=== PATIENT | male | born 1945 | race African-American/Black ===

== ENCOUNTER 2017-06-02 00:11 | Emergency (ER) | payer MEDICAID, MEDICARE ==
[~2017-06-02] VITALS: Ht 175.3 cm; Wt 99.8 kg
[2017-06-02 00:23] VITALS: BP 156/85
[2017-06-02] MEDS ORDERED: NKM (00:23)
[2017-06-02 01:16] LABS: BASOPHILS % (AUTO) 0.7 % (0.0-2.0); EOSINOPHILS % (AUTO) 4.1 % (0.0-3.0); LYMPHOCYTES % (AUTO) 17.2 % (20.0-45.0); MEAN CORPUSCULAR HGB CONC 32.1 G/DL (32.0-36.0); MEAN CORPUSCULAR VOLUME 90 FL (80-99); MEAN PLATELET VOLUME 9.2 FL (6.5-10.1); MONOCYTES % (AUTO) 5.3 % (1.0-10.0); NEUTROPHILS % (AUTO) 72.7 % (45.0-75.0); PLATELET COUNT 205 K/UL (150-450); RED BLOOD COUNT 4.45 M/UL (4.70-6.10); RED CELL DISTRIBUTION WIDTH 14.2 % (11.6-14.8); WHITE BLOOD COUNT 7.9 K/UL (4.8-10.8)
[2017-06-02 01:34] LABS: APPEARANCE,URINE CLEAR; KETONES,URINE NEGATIVE (NEGATIVE); LEUKOCYTE ESTERASE ,URINE NEGATIVE (NEGATIVE); NITRITE,URINE NEGATIVE (NEGATIVE); PH,URINE 5 (4.5-8.0); PROTEIN,URINE NEGATIVE (NEGATIVE); UROBILINOGEN,URINE NORMAL MG/DL (0.0-1.0)
[2017-06-02 01:35] LABS: ALANINE AMINOTRANSFERASE 10 U/L (3-41); ALBUMIN/GLOBULIN RATIO 1.1 (1.0-2.7); ANION GAP 11 (5-15); ASPARTATE AMINO TRANSFERASE 19 U/L (5-40); CALCIUM 9.2 mg/dL (8.6-10.2); CARBON DIOXIDE 28 mEQ/L (20-30); CHLORIDE 102 mEQ/L (98-107); GLOMERULAR FILTRATION RATE > 60 mL/min (>60); HEMOLYSIS 56; POTASSIUM 3.5 mEQ/L (3.4-4.9); SODIUM 141 mEQ/L (135-145); TOTAL PROTEIN 7.2 g/dL (6.6-8.7)
[2017-06-02 01:38] LABS: TROPONIN I < 0.30 ng/mL (<=0.30)
[2017-06-02 02:10] VITALS: BP 150/86
--- NOTE | 2017-06-02 02:44 | Emergency Room Report ---
History of Present Illness General Chief Complaint: Edema Source: Patient Present Illness HPI Patient presents with edema. It's been worsening over the last week. Denies any pain in his calves or legs. He's had his blood pressure medicine changed recently. He was taken diabetic medicine before but is not at this time. Denies chest pain, dyspnea, GILMORE, orthopnea. States the edema goes down when laying down. He's had this problem before, but not as extensive. It started in his feet. He states it is a little more difficult to ambulate, but he is able. No fever, cough, NVD, palpitations, polyuria, headache, dizziness. Denies h/o CHF. 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.) Allergies: Coded Allergies: No Known Allergies (Unverified , 06/02/17) Patient History Past Medical History: see triage record Social History: Reports: drug use - heroin, smoking - former Social History Narrative Reviewed Nursing Documentation: PMH: Agreed, PSxH: Agreed Nursing Documentation-PMH Hx Hypertension: Yes Review of Systems All Other Systems: negative except mentioned in HPI Physical Exam Vital Signs Date Time Temp Pulse Resp B/P Pulse Ox O2 Delivery O2 Flow Rate FiO2 06/02/17 00:19 98.2 75 14 156/85 94 Room Air Sp02 EP Interpretation: reviewed, normal General Appearance: well appearing, no apparent distress, GCS 15 Head: normocephalic Eyes: bilateral eye PERRL, bilateral eye Scleral Injection ENT: moist mucus membranes Neck: supple Respiratory: chest non-tender, lungs clear, normal breath sounds Cardiovascular #1: regular rate, rhythm, no murmur, edema - bilateral LE, 2+ Cardiovascular #2: 2+ radial (R), 2+ dorsalis pedis (R), 2+ dorsalis pedis (L) Gastrointestinal: normal inspection, normal bowel sounds, non tender, no mass, non-distended, other - hard to size liver Musculoskeletal: back normal, gait/station normal, normal range of motion, calf tenderness, Dayron's Sign negative, swelling Neurologic: alert, oriented x3, grossly normal Psychiatric: depressed affect Skin: warm/dry, other - minimal nodularity of LE skin, no erythema Medical Decision Making Diagnostic Impression: Primary Impression: Edema Qualified Codes: R60.9 - Edema, unspecified ER Course Patient presents with worsening edema over at least the last week. Ddx: CHF, cor pulmonale, salt excess, renal failure, AMI, malnutrition, hypothyroidism amongst others. No cardiac murmur heard. Urgent evaluation with EKG, CXR, labs. Patient will be given a dose of lasix. 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 EKG with no acute changes. Labs without renal failure. + opiates. Min elevated BNP. Albumen OK. Patient diuresed here. Discussed issue of salt and also problems with IVDA. Improved. Patient stable for outpatient observation and treatment. Labs Test 06/02/17 01:00 06/02/17 01:30 White Blood Count 7.9 K/UL (4.8-10.8) Red Blood Count 4.45 M/UL (4.70-6.10) Hemoglobin 12.9 G/DL (14.2-18.0) Hematocrit 40.3 % (42.0-52.0) Mean Corpuscular Volume 90 FL (80-99) Mean Corpuscular Hemoglobin 29.0 PG (27.0-31.0) Mean Corpuscular Hemoglobin Concent 32.1 G/DL (32.0-36.0) Red Cell Distribution Width 14.2 % (11.6-14.8) Platelet Count 205 K/UL (150-450) Mean Platelet Volume 9.2 FL (6.5-10.1) Neutrophils (%) (Auto) 72.7 % (45.0-75.0) Lymphocytes (%) (Auto) 17.2 % (20.0-45.0) Monocytes (%) (Auto) 5.3 % (1.0-10.0) Eosinophils (%) (Auto) 4.1 % (0.0-3.0) Basophils (%) (Auto) 0.7 % (0.0-2.0) Prothrombin Time 10.0 SEC (9.30-11.50) Prothromb Time International Ratio 1.0 (0.9-1.1) Activated Partial Thromboplast Time 25 SEC (23-33) Sodium Level 141 mEQ/L (135-145) Potassium Level 3.5 mEQ/L (3.4-4.9) Chloride Level 102 mEQ/L (98-107) Carbon Dioxide Level 28 mEQ/L (20-30) Anion Gap 11 (5-15) Blood Urea Nitrogen 14 mg/dL (7-23) Creatinine 1.0 mg/dL (0.7-1.2) Estimat Glomerular Filtration Rate > 60 mL/min (>60) Glucose Level 131 mg/dL (74-106) Calcium Level 9.2 mg/dL (8.6-10.2) Total Bilirubin 0.3 mg/dL (0.0-1.2) Aspartate Amino Transf (AST/SGOT) 19 U/L (5-40) Alanine Aminotransferase (ALT/SGPT) 10 U/L (3-41) Alkaline Phosphatase 82 U/L (40-129) Total Creatine Kinase 256 U/L (38-174) Troponin I < 0.30 ng/mL (<=0.30) Pro-B-Type Natriuretic Peptide 147 pg/mL (0-125) Total Protein 7.2 g/dL (6.6-8.7) Albumin 3.8 g/dL (3.5-5.2) Globulin 3.4 g/dL Albumin/Globulin Ratio 1.1 (1.0-2.7) Urine Color Yellow Urine Appearance Clear Urine pH 5 (4.5-8.0) Urine Specific [place] 1.015 (1.005-1.035) Urine Protein Negative (NEGATIVE) Urine Glucose (UA) Negative (NEGATIVE) Urine Ketones Negative (NEGATIVE) Urine Occult Blood Negative (NEGATIVE) Urine Nitrite Negative (NEGATIVE) Urine Bilirubin Negative (NEGATIVE) Urine Urobilinogen Normal MG/DL (0.0-1.0) Urine Leukocyte Esterase Negative (NEGATIVE) Urine Opiates Screen Positive (NEGATIVE) Urine Barbiturates Screen Negative (NEGATIVE) Phencyclidine (PCP) Screen Negative (NEGATIVE) Urine Amphetamines Screen Negative (NEGATIVE) Urine Benzodiazepines Screen Negative (NEGATIVE) Urine Cocaine Screen Negative (NEGATIVE) Urine Marijuana (THC) Screen Negative (NEGATIVE) EKG Diagnostic Results Rate: bradycardiac ST Segments: no acute changes Rhythm Strip Diag. Results EP Interpretation: yes Rhythm: no PVC's, no ectopy, other - Sinus bradycardia Chest X-Ray Diagnostic Results Chest X-Ray Diagnostic Results : Chest X-Ray Ordered: Yes # of Views/Limited/Complete: 1 View Indication: Other EP Interpretation: Yes Interpretation: no consolidation, no effusion, no pneumothorax, no acute cardiopulmonary disease, other - poor inspiration, DJD spine Impression: No acute disease Interpreting ER Provider: Electronic signature Alonso Delgado MD Last Vital Signs Date Time Temp Pulse Resp B/P Pulse Ox O2 Delivery O2 Flow Rate FiO2 06/02/17 03:19 98.4 62 15 139/98 99 Room Air Status: improved Disposition: HOME, SELF-CARE Condition: Improved Scripts Triamterene/Hydrochlorothiazide* (DYAZIDE 37.5-25 MG TAB*) 1 Each Tablet 1 TAB ORAL DAILY, #30 TAB Prov: Alonso Delgado M.D. 06/02/17 Referrals: NON PHYSICIAN (PCP) Alonso Delgado M.D. Jun 02, 2017 02:44
[2017-06-02] MEDS ORDERED: TRIAMTERENE-HC1 EAC5 ORAL (02:54)
[2017-06-02 03:19] VITALS: BP 139/98
--- NOTE | 2017-06-02 11:00 | Diagnostic Imaging Report ---
Indication: Chest pain Technique: XRAY CHEST 1 V Comparison: None Findings: There is poor inspiration with bronchovascular crowding. Cardiac silhouette is prominent. There is no gross consolidation or pleural effusion. Degenerative changes of the spine are seen. Impression: Poor inspiration with bronchovascular crowding. Mild congestive changes not excluded. Followup recommended.
== END 2017-06-02 03:19 | disposition home or self-care (01) ==
LOC: EMR 00:53
DX: R60.9 Edema, unspecified (principal); I10 Essential (primary) hypertension; F11.10 Opioid abuse, uncomplicated; Z87.891 Personal history of nicotine dependence
CPT/HCPCS: 36415; 71010; 80053; 80300; 81003; 82550; 83880; 84484; 85025; 85610; 85730; 93005; 96374; 99284; J1940